=== PATIENT | male | born 1955 | race Caucasian/White ===

== ENCOUNTER 2018-03-08 19:42 | Inpatient (IN) | payer OTHER ==
[~2018-03-08] VITALS: Ht 172.7 cm; Wt 60.1 kg
[~2018-03-08 19:42] MED LIST: ALBU2.5V5 INH; ALBU3IS INH; ASPI325 PO; ATOR20 PO; BISA10S PR; CHLO25 PO; CHOL10002 PO; CREON DR 12,001 EACH PO; DOCU100 PO; FISH1000 PO; GNP ONE DAILY400 MCG PO; HYDR1TAB94 PO; METO50 PO; Milk Of Ma400 MG/5 M PO; NICO21TP TOP; RXDIPATR PO; TAMS.4ER PO; THIA100 PO; TRAM50 PO; TRAZ100 PO
[2018-03-08] MEDS ORDERED: TRAM50 PO (20:22)
[2018-03-08] MEDS ORDERED: TRAZ50 PO (20:22)
[2018-03-08 20:24] LABS: BASOPHILS ABSOLUTE AUTO 0.05 K/mm3 (0.00-0.23); BASOPHILS PERCENT AUTO 1 % (0-2); EOSINOPHILS ABSOLUTE AUTO 0.37 K/mm3 (0.00-0.68); EOSINOPHILS PERCENT AUTO 7 % (0-6); Hematocrit 40.1 % (37.0-53.0); Hemoglobin 13.4 g/dL (13.5-17.5); IMMATURE GRAN ABSOLUTE AUTO 0.01 K/mm3 (0.00-0.10); IMMATURE GRAN PERCENT AUTO 0 % (0-1); LYMPHOCYTES ABSOLUTE AUTO 1.83 K/mm3 (0.84-5.20); LYMPHOCYTES PERCENT AUTO 36 % (21-46); MONOCYTES ABSOLUTE AUTO 0.49 K/mm3 (0.16-1.47); MONOCYTES PERCENT AUTO 10 % (4-13); Mean Corpuscular HGB 31.2 pg (26.0-34.0); Mean Corpuscular HGB Conc 33.4 g/dL (31.5-36.5); Mean Corpuscular Volume 94 fL (80-100); Mean Platelet Volume 11.1 fL (9.1-12.4); NEUTROPHILS ABSOLUTE AUTO 2.36 K/mm3 (1.96-9.15); NEUTROPHILS PERCENT AUTO 46 % (41-73); Platelet Count 78 K/mm3 (150-400); RDW Standard Deviation 51.8 fL (35.1-46.3); Red Blood Cell Count 4.29 M/mm3 (4.30-5.90); White Blood Cell Count 5.11 K/mm3 (4.00-11.30)
[2018-03-08 20:41] LABS: Alanine Aminotransfer (ALT/SGP 49 U/L (12-78); Albumin, Blood 3.2 g/dL (3.4-5.0); Albumin/Globulin Ratio 0.9 (0.8-1.8); Alk Phos 85 U/L (50-136); Anion Gap 9 mmol/L (6-16); Aspartate Aminotrans (AST/SGOT 88 U/L (12-37); Bilirubin, Total 0.9 mg/dL (0.1-1.0); Blood Urea Nitrogen 7 mg/dL (8-24); Bun/Creatinine Ratio 13.2 (12.0-20.0); CO2, Blood 31 mmol/L (21-32); Calcium, Blood 7.8 mg/dL (8.5-10.1); Chloride, Blood 92 mmol/L (98-108); Creatinine, Blood 0.53 mg/dL (0.60-1.20); Ethanol (Alcohol), Blood, Med 288 mg/dL; Globulin, Blood 3.6 g/dL (2.2-4.0); Glomerular Filtration Rate >60 (60-); Glucose, Blood 94 mg/dL (70-99); Potassium, Blood 5.1 mmol/L (3.5-5.5); Sodium, Blood 132 mmol/L (136-145); Total Protein, Blood 6.8 g/dL (6.4-8.2); Troponin I <0.015 ng/mL (0.000-0.040)
[2018-03-08 23:31] LABS: Magnesium, Blood 1.9 mg/dL (1.6-2.4)
[2018-03-09 04:56] LABS: BASOPHILS ABSOLUTE AUTO 0.01 K/mm3 (0.00-0.23); BASOPHILS PERCENT AUTO 1 % (0-2); EOSINOPHILS PERCENT AUTO 0 % (0-6); Hematocrit 43.3 % (37.0-53.0); Hemoglobin 14.2 g/dL (13.5-17.5); Mean Corpuscular HGB 30.3 pg (26.0-34.0); Mean Corpuscular HGB Conc 32.8 g/dL (31.5-36.5); Mean Corpuscular Volume 92 fL (80-100); Mean Platelet Volume 11.2 fL (9.1-12.4); Platelet Count 63 K/mm3 (150-400); RDW Coefficient Variation 14.7 % (11.7-14.2); RDW Standard Deviation 49.8 fL (35.1-46.3); Red Blood Cell Count 4.69 M/mm3 (4.30-5.90); White Blood Cell Count 1.33 K/mm3 (4.00-11.30)
[2018-03-09 04:59] LABS: IMMATURE GRAN ABSOLUTE AUTO 0.01 K/mm3 (0.00-0.10); IMMATURE GRAN PERCENT AUTO 1 % (0-1); LYMPHOCYTES ABSOLUTE AUTO 0.15 K/mm3 (0.84-5.20); LYMPHOCYTES PERCENT AUTO 11 % (21-46); MONOCYTES ABSOLUTE AUTO 0.02 K/mm3 (0.16-1.47); MONOCYTES PERCENT AUTO 2 % (4-13); NEUTROPHILS ABSOLUTE AUTO 1.14 K/mm3 (1.96-9.15); NEUTROPHILS PERCENT AUTO 86 % (41-73)
[2018-03-09 05:18] LABS: Alanine Aminotransfer (ALT/SGP 47 U/L (12-78); Albumin, Blood 3.3 g/dL (3.4-5.0); Albumin/Globulin Ratio 0.8 (0.8-1.8); Alk Phos 95 U/L (50-136); Anion Gap 13 mmol/L (6-16); Aspartate Aminotrans (AST/SGOT 66 U/L (12-37); Bilirubin, Total 0.9 mg/dL (0.1-1.0); Blood Urea Nitrogen 7 mg/dL (8-24); Bun/Creatinine Ratio 12.4 (12.0-20.0); CO2, Blood 27 mmol/L (21-32); Calcium, Blood 8.2 mg/dL (8.5-10.1); Chloride, Blood 90 mmol/L (98-108); Creatinine, Blood 0.57 mg/dL (0.60-1.20); Globulin, Blood 3.9 g/dL (2.2-4.0); Glomerular Filtration Rate >60 (60-); Glucose, Blood 253 mg/dL (70-99); Potassium, Blood 3.9 mmol/L (3.5-5.5); Sodium, Blood 130 mmol/L (136-145); Total Protein, Blood 7.2 g/dL (6.4-8.2)
[2018-03-10 04:02] LABS: Hematocrit 39.5 % (37.0-53.0); Hemoglobin 13.2 g/dL (13.5-17.5); Mean Corpuscular HGB 31.2 pg (26.0-34.0); Mean Corpuscular HGB Conc 33.4 g/dL (31.5-36.5); Mean Corpuscular Volume 93 fL (80-100); Mean Platelet Volume 11.7 fL (9.1-12.4); Platelet Count 58 K/mm3 (150-400); RDW Coefficient Variation 14.4 % (11.7-14.2); RDW Standard Deviation 49.1 fL (35.1-46.3); Red Blood Cell Count 4.23 M/mm3 (4.30-5.90)
[2018-03-10 04:18] LABS: Anion Gap 7 mmol/L (6-16); Blood Urea Nitrogen 11 mg/dL (8-24); Bun/Creatinine Ratio 18.1 (12.0-20.0); CO2, Blood 35 mmol/L (21-32); Calcium, Blood 8.9 mg/dL (8.5-10.1); Chloride, Blood 90 mmol/L (98-108); Creatinine, Blood 0.61 mg/dL (0.60-1.20); Glomerular Filtration Rate >60 (60-); Glucose, Blood 223 mg/dL (70-99); Sodium, Blood 132 mmol/L (136-145)
[2018-03-10 04:20] LABS: BAND PERCENT MAN 12 % (0-8); BASOPHILS PERCENT MAN 0 % (0-2); EOSINOPHILS PERCENT MAN 0 % (0-6); LYMPHOCYTES ABSOLUTE MAN 0.22 K/mm3 (0.84-5.20); LYMPHOCYTES PERCENT MAN 6 % (21-46); MONOCYTES ABSOLUTE MAN 0.14 K/mm3 (0.16-1.47); MONOCYTES PERCENT MAN 4 % (4-13); NEUTROPHILS ABSOLUTE MAN 3.33 K/mm3 (1.96-9.15); SEG NEUTROPHILS PERCENT MAN 78 % (41-73); TOTAL CELLS COUNTED 100
[2018-03-12 05:11] LABS: Anion Gap 6 mmol/L (6-16); Blood Urea Nitrogen 29 mg/dL (8-24); Bun/Creatinine Ratio 44.9 (12.0-20.0); CO2, Blood 35 mmol/L (21-32); Chloride, Blood 97 mmol/L (98-108); Creatinine, Blood 0.65 mg/dL (0.60-1.20); Glomerular Filtration Rate >60 (60-); Glucose, Blood 149 mg/dL (70-99); Potassium, Blood 4.3 mmol/L (3.5-5.5); Sodium, Blood 138 mmol/L (136-145)
[2018-03-13] MEDS ORDERED: CHLO25 PO (11:33)
[2018-03-13] MEDS ORDERED: NICO21TP TOP (11:34)
[2018-03-13] MEDS ORDERED: PRED20 PO (11:34)
[2018-03-15 05:37] LABS: Magnesium, Blood 1.4 mg/dL (1.6-2.4)
[2018-03-15 05:38] LABS: Anion Gap 6 mmol/L (6-16); Blood Urea Nitrogen 36 mg/dL (8-24); Bun/Creatinine Ratio 45.6 (12.0-20.0); CO2, Blood 34 mmol/L (21-32); Calcium, Blood 8.6 mg/dL (8.5-10.1); Chloride, Blood 100 mmol/L (98-108); Creatinine, Blood 0.79 mg/dL (0.60-1.20); Glomerular Filtration Rate >60 (60-); Glucose, Blood 147 mg/dL (70-99); Potassium, Blood 3.7 mmol/L (3.5-5.5); Sodium, Blood 140 mmol/L (136-145)
[2018-03-17 04:43] LABS: Anion Gap 7 mmol/L (6-16); Blood Urea Nitrogen 32 mg/dL (8-24); Bun/Creatinine Ratio 47.5 (12.0-20.0); CO2, Blood 33 mmol/L (21-32); Calcium, Blood 8.1 mg/dL (8.5-10.1); Chloride, Blood 102 mmol/L (98-108); Creatinine, Blood 0.67 mg/dL (0.60-1.20); Glomerular Filtration Rate >60 (60-); Glucose, Blood 86 mg/dL (70-99); Magnesium, Blood 1.8 mg/dL (1.6-2.4); Sodium, Blood 142 mmol/L (136-145)
[2018-03-25 05:43] LABS: BASOPHILS ABSOLUTE AUTO 0.04 K/mm3 (0.00-0.23); BASOPHILS PERCENT AUTO 1 % (0-2); EOSINOPHILS ABSOLUTE AUTO 0.21 K/mm3 (0.00-0.68); EOSINOPHILS PERCENT AUTO 3 % (0-6); Hematocrit 36.1 % (37.0-53.0); Hemoglobin 11.3 g/dL (13.5-17.5); IMMATURE GRAN ABSOLUTE AUTO 0.04 K/mm3 (0.00-0.10); IMMATURE GRAN PERCENT AUTO 1 % (0-1); LYMPHOCYTES ABSOLUTE AUTO 1.15 K/mm3 (0.84-5.20); LYMPHOCYTES PERCENT AUTO 16 % (21-46); MONOCYTES ABSOLUTE AUTO 1.22 K/mm3 (0.16-1.47); MONOCYTES PERCENT AUTO 17 % (4-13); Mean Corpuscular HGB 30.5 pg (26.0-34.0); Mean Corpuscular HGB Conc 31.3 g/dL (31.5-36.5); Mean Corpuscular Volume 98 fL (80-100); Mean Platelet Volume 11.1 fL (9.1-12.4); NEUTROPHILS ABSOLUTE AUTO 4.38 K/mm3 (1.96-9.15); NEUTROPHILS PERCENT AUTO 62 % (41-73); Platelet Count 203 K/mm3 (150-400); RDW Coefficient Variation 13.9 % (11.7-14.2); RDW Standard Deviation 49.2 fL (35.1-46.3); White Blood Cell Count 7.04 K/mm3 (4.00-11.30)
[2018-03-25 06:02] LABS: Anion Gap 4 mmol/L (6-16); Blood Urea Nitrogen 19 mg/dL (8-24); Bun/Creatinine Ratio 27.7 (12.0-20.0); CO2, Blood 34 mmol/L (21-32); Calcium, Blood 8.4 mg/dL (8.5-10.1); Chloride, Blood 100 mmol/L (98-108); Creatinine, Blood 0.69 mg/dL (0.60-1.20); Glomerular Filtration Rate >60 (60-); Glucose, Blood 95 mg/dL (70-99); Magnesium, Blood 1.9 mg/dL (1.6-2.4); Potassium, Blood 4.2 mmol/L (3.5-5.5); Sodium, Blood 138 mmol/L (136-145)
[2018-03-26] MEDS ORDERED: PROAIR RESPICL90 MCG INH (15:59)
[2018-03-26] MEDS ORDERED: Calcium Carbon500 M1 PO (16:00)
[2018-03-26] MEDS ORDERED: DULERA 100 MCG/13 GM INH (16:02)
== END 2018-03-26 17:16 | disposition home health service (06) | DRG 191 ==
LOC: ER 19:42 → PCU 19:43 → MEDS 19:43 → PCU 22:47 → ER 22:47 → PCU 03-09 00:03 → MEDS 03-11 20:13 → ENPENDDIS 03-13 10:36 → EDPENDDIS 03-13 10:36 → MEDS 03-14 21:10 → EDPENDDISDT 03-26 13:45 → EDPENDDISTM 03-26 13:45 → EDPENDDIS 03-26 13:45 → MEDS 03-26 17:16
PROVIDERS: Emergency Medicine; Internal Medicine; Nurse Practitioner Acute Care
DX: J44.1 Chronic obstructive pulmonary disease with (acute) exacerbation (principal); F10.239 Alcohol dependence with withdrawal, unspecified; E87.1 Hypo-osmolality and hyponatremia; J96.11 Chronic respiratory failure with hypoxia; Z99.81 Dependence on supplemental oxygen; F10.229 Alcohol dependence with intoxication, unspecified; E78.5 Hyperlipidemia, unspecified; F32.9 Major depressive disorder, single episode, unspecified; D69.6 Thrombocytopenia, unspecified; F19.10 Other psychoactive substance abuse, uncomplicated; R53.81 Other malaise; F17.210 Nicotine dependence, cigarettes, uncomplicated; F12.10 Cannabis abuse, uncomplicated; D72.819 Decreased white blood cell count, unspecified; G89.4 Chronic pain syndrome
CPT/HCPCS: 36415; 71046; 80048; 80053; 82607; 82947; 83735; 84145; 84484; 85025; 93005; 93010; 94640; 94664; 94760; 94761; 96374; 97110; 97116; 97162; 97166; 97530; 97535; 98960; 99285-25; C9113; G0480; G8978; G8979; G8980; G8987; G8988; J1650; J2060; J2920; J2930; J3411; J3475; J7030; J7042